=== PATIENT | male | born 1990 | race Caucasian/White ===

== ENCOUNTER 2017-04-09 11:49 | Emergency (ER) | payer BC ==
--- NOTE | 2017-04-09 12:44 | ERNOTE ---
Medical Problem HPI - General Chief Complaint: General Assessment Time Seen by Provider: 04/09/17 12:26 Source: patient Exam Limitations: no limitations - Immun/Allergies/Home Medications Immunizations: IMMUNIZATION HX Immunizations Up to Date Yes Allergies/Adverse Reactions: Allergies No Known Allergies Allergy (Unverified 02/02/14 15:43) Home Medications: HOME MEDICATIONS Allopurinol [Zyloprim] 300 mg PO DAILY 04/09/17 [Last Taken Unknown] - History of Present History Narrative: Patient has been fatigued with low energy level for many years. He does not have a PCP but saw a nurse practitioner in a 'rejuvenation clinic' in the [facility] about a month ago and had extensive testing done. He was told that he has hemochromatosis and needed to either donate blood or have a phlebotomy on a regular basis. Since he grew up in [facility] till age [age] he is not eligible to donate blood and came to our hospital to have a phlebotomy but did not have a providers order. He works out on a regular basis and takes pre work out supplements, denies using creatinine, denies any acute new new symptoms Review of Systems - Review of Systems Constitutional: Present: fatigue, malaise. Absent: recent illness, fever, chills, weight loss EYE: Absent: double vision ENT: Absent: nose pain, nose congestion, sore throat Respiratory: Absent: shortness of breath, cough Cardiology: Absent: chest pain, palpitations Gastrointestinal/Abdominal: Absent: nausea, vomiting, diarrhea, abdominal pain Genitourinary: Present: no symptoms reported Musculoskeletal: Absent: back pain, neck pain Skin: Absent: rash Neurological: Absent: headache Endocrine: Present: no symptoms reported Psych: Absent: depressed, emotional problems - Patient's Past Medical History Patient History - Medical: Other - chronic fatigue Patient History - Cardiac/Respiratory: No pertinent hx Patient History - Cancer: No Hx of Cancer Patient History - Surgical Procedures: No surgical history - Social History Living Situations: home Abuse History: No History of abuse Psych History: No pertinent hx Smoking Status: Never smoker Alcohol Use: occasionally Drug Use: none - Immunizations Immunizations Up to Date: Yes Physical Exam - Physical Exam General Appearance: Present: wd/wn, alert, no apparent distress Respiratory: Present: no respiratory distress, normal breath sounds, no accessory muscle use, lungs clear Cardiovascular/Chest: Present: regular rate, rhythm, no murmur Gastrointestinal/Abdominal: Present: nontender, nondistended, soft Extremity Exam: Present: no edema Neurological Exam: Present: alert, oriented, other - flat affect, poor eye contact, denies depression Skin Exam: Present: normal color, warm/dry ED Progress - Results and Orders Patient's Lab Results:: I have reviewed the patient's lab results. - also reviewed out patient labs from other provider - Vital Signs Patient's Vital Signs:: I have reviewed the patient's vital signs. Vital Signs: Vital Signs 04/09/17 04/09/17 11:52 12:22 Temperature 36.7 C Pulse Rate 79 79 Respiratory 17 17 Rate Blood Pressure 133/84 116/77 O2 Sat by Pulse 98 97 Oximetry - Progress/Reassessment Chief Complaint: General Assessment Progress Note-Subjective: 04/09/17 13:48 discussed test results with patient, patient has normal iron studies and H/H, no indication for hemochromatosis, discussed that there is currently no indication for phlebotomy, mentioned possible diagnosis of depression, suggested follow up with PCP, patient agreed to follow up, discussed patient with Jill Kearns Departure Clinical Impression: Fatigue Qualifiers: Fatigue type: unspecified Qualified Code(s): R53.83 - Other fatigue - Departure Disposition: Home self-care Condition: Good Instructions: Fatigue Referrals: Jill Kearns FNP [[facility]] - 04/21/17 1:45 pm
[2017-04-09 12:57] LABS: Hematocrit 41.6 % (42.0-52.0); Hemoglobin 14.7 gm/dL (13.5-18.0); Mean Cell Volume 82.5 fl (78-100); Mean Corpuscular Hemoglobin 29.2 pg (27-31); Mean Corpuscular Hgb Conc 35.3 g/dl (32-36); Mean Platelet Volume 9.3 fl (6.0-9.5); Neutrophil # 4.8 K/mm3 (1.3-6.0); Platelet Count 293 K/mm3 (150-450); Red Blood Count 5.04 M/mm3 (4.7-6.0); Red Cell Distribution Width 12.5 % (11.5-14.0); White Blood Count 8.3 K/mm3 (4.0-10.5)
[2017-04-09 13:20] LABS: Albumin * 4.2 gm/dl (3.4-5.0); Anion Gap 13.1 mmol/L (6.8-13.8); BUN/Creatinine Ratio 15.8 (9.0-21.6); Bilirubin, Total 0.4 mg/dL (0.0-1.1); Ca. Corrected For Albumin 8.3 mg/dL (8.4-10.2); Calcium * 8.8 mg/dL (7.9-10.9); Carbon Dioxide 29.1 mmol/L (24-32.6); Iron 94 mcg/dL (35-120); Potassium 4.2 mmol/L (3.4-4.6); Total Protein 7.5 gm/dL (6.2-8.2); Transferrin Sat. (% Sat.) 24 % (15-55)
[2017-04-09 13:59] VITALS: BP 116/69
== END 2017-04-09 14:28 | disposition home or self-care (01) ==
LOC: ER 11:49
DX: R53.83 Other fatigue (principal)